=== PATIENT | female | born 2000 | race Caucasian/White ===

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

== ENCOUNTER 2018-01-13 21:37 | Emergency (ER) | payer OTHER ==
[2018-01-13 22:25] LABS: Bilirubin Negative (Negative); Blood, Urine Small (Negative); Clarity Clear (Clear); Glucose, Urine (Dipstick) Negative (Negative); Leukocyte Negative (Negative); Nitrite Negative (Negative); Protein, Urine (Dipstick) Negative (Neg-Trace); Urobilinogen 0.2 mg/dL (0.2-1.0)
[2018-01-13 22:32] LABS: Bacteria/HPF None Seen HPF (None Seen); Specific Gravity, Urine 1.022 (1.002-1.036); Squamous Epithelial 0-3 HPF (0-3); WBC/HPF 0-3 HPF (0-3)
[2018-01-13 22:33] LABS: Pregnancy Test - Urine (BHCG) Negative (Negative); Pregu Control Background? CLEAR/WHITE (CLR/WHITE); Pregu Control Bar Appear? YES (CONTROL BAR); Specific Gravity 1.022 (1.002-1.036)
--- NOTE | 2018-01-13 23:09 | CT ---
CT ABDOMEN AND PELVIS WITHOUT IV CONTRAST: INDICATIONS: Right flank pain. Nausea and vomiting. COMPARISON: None. FINDINGS: The lung bases are clear. Unopacified liver, spleen, pancreas, adrenal glands, and kidneys are unremarkable. No hydronephrosis is evident. No renal or ureteral calculus is evident. No free fluid is evident. The appendix is not definitely visualized. No free fluid is evident. The bladder is decompressed. No acute osseous abnormality is evident. IMPRESSION: 1. No renal or ureteral calculus. 2. Nonvisualization of the appendix. 3. No free fluid demonstrated. POS: [facility]
[2018-01-13] MEDS ORDERED: Acetaminophen 500 MG TAB ONE (23:16)
[2018-01-13] MEDS ORDERED: Ibuprofen 800 MG TAB ONE (23:16)
[2018-01-13] MEDS ORDERED: traMADol HCl 50 MG TAB ONE (23:16)
== END 2018-01-13 23:19 | disposition home or self-care (01) ==
LOC: MADERS 21:37
DX: M54.5 Low back pain (principal); E06.3 Autoimmune thyroiditis; F32.9 Major depressive disorder, single episode, unspecified; Z79.899 Other long term (current) drug therapy
CPT/HCPCS: 74176; 81003; 81015; 81025

== ENCOUNTER 2018-10-21 17:57 | Emergency (ER) | payer OTHER | END 2018-10-21 18:36 | disposition home or self-care (01) | LOC: MADERS 17:57 | DX: O99.89 Other specified diseases and conditions complicating pregnancy, childbirth and the puerperium (principal); R10.2 Pelvic and perineal pain; O99.342 Other mental disorders complicating pregnancy, second trimester; F32.9 Major depressive disorder, single episode, unspecified; Z3A.27 27 weeks gestation of pregnancy | CPT/HCPCS: 99283 ==

== ENCOUNTER 2018-10-31 13:23 | Outpatient (CLI) | payer OTHER ==
[2018-10-31 15:01] LABS: #Eosinphils 0.1 thou/uL (0.0-0.7); #Lymphocytes 1.3 thou/uL (1.20-3.40); #Monocytes 0.5 thou/uL (0.11-0.59); #Neutrophils 4.4 thou/uL (1.40-6.50); %Basophils 0.8 % (0.0-1.0); %Eosinophils 0.9 % (0.0-10.0); %Lymphocytes 20.2 % (28.0-48.0); %Monocytes 7.2 % (0.0-4.0); Hemoglobin 9.6 g/dL (12.0-16.0); Mean Corpuscular HGB CONC 32.7 g/dL (32.0-36.0); Mean Corpuscular Hemoglobin 31.2 pg (25.0-35.0); Mean Corpuscular Volume 95.5 fL (78.0-98.0); Mean Platelet Volume 7.2 fL (7.4-10.4); Platelet Count 262 thou/uL (130-400); RBC Distribution Width 11.2 % (11.5-14.5); Red Blood Cell (RBC) Count 3.08 mill/uL (4.00-5.20); White Blood Cell (WBC) Count 6.2 thou/uL (4.8-10.8)
[2018-10-31 15:35] LABS: Thyroid Stimulating Hormone 0.9644 uIU/mL (0.35-4.94)
[2018-10-31 22:04] LABS: Syphilis Antibody Nonreactive (Nonreactive); Syphilis Antibody Index 0.03 S/CO (<1.00 Non-Reactive)
[2018-10-31 22:33] LABS: HIV (1/2) Antibody/Antigen Non-Reactive (NonReactive); HIV 1/2 INDEX 0.06 S/CO (<1.00)
== END 2018-10-31 13:24 ==
LOC: MADLABBHPM 13:23
PROVIDERS: ATTEND Family Medicine
DX: Z34.83 Encounter for supervision of other normal pregnancy, third trimester (principal)
CPT/HCPCS: 36415; 82950; 84443; 85025; 86780; 87389

== ENCOUNTER 2018-11-06 08:06 | Outpatient (CLI) | payer OTHER | END 2018-11-06 08:07 | disposition home or self-care (01) | LOC: MADLABBHPM 08:06 | PROVIDERS: ATTEND Family Medicine | DX: Z34.83 Encounter for supervision of other normal pregnancy, third trimester (principal) | CPT/HCPCS: 36415; 82951; 82952 ==

== ENCOUNTER 2018-11-07 19:02 | Emergency (ER) | payer OTHER ==
[~2018-11-07 19:02] MED LIST: Iopamidol 370 76% 125 ML VIAL FS ONE; Sodium Chloride 0.9% 100 ML BAG ONE
[2018-11-07 20:29] LABS: #Basophils 0.1 thou/uL (0.0-0.2); #Eosinphils 0.1 thou/uL (0.0-0.7); #Monocytes 0.6 thou/uL (0.11-0.59); #Neutrophils 5.7 thou/uL (1.40-6.50); %Basophils 1.8 % (0.0-1.0); %Eosinophils 1.1 % (0.0-10.0); %Lymphocytes 13.4 % (28.0-48.0); %Monocytes 7.8 % (0.0-4.0); %Neutrophils 75.8 % (31.0-61.0); Hemoglobin 9.5 g/dL (12.0-16.0); Mean Corpuscular HGB CONC 33.5 g/dL (32.0-36.0); Mean Corpuscular Hemoglobin 31.4 pg (25.0-35.0); Mean Corpuscular Volume 93.8 fL (78.0-98.0); Mean Platelet Volume 7.3 fL (7.4-10.4); Platelet Count 253 thou/uL (130-400); RBC Distribution Width 11.1 % (11.5-14.5); Red Blood Cell (RBC) Count 3.04 mill/uL (4.00-5.20); White Blood Cell (WBC) Count 7.5 thou/uL (4.8-10.8)
[2018-11-07 20:40] LABS: ALT (SGPT) 34 U/L (8-55); AST (SGOT) 77 U/L (5-34); Albumin 3.7 g/dL (3.5-5.0); Alkaline Phosphatase 91 U/L (40-150); Anion Gap 15 mmol/L (10-20); BUN (Urea Nitrogen) 5 mg/dL (7.0-18.7); Bilirubin, Total 0.6 mg/dL (0.2-1.2); Calc. Creatinine Clearance 0 mL/min (70-130); Calcium 8.9 mg/dL (7.8-10.44); Carbon Dioxide 20 mmol/L (22-29); Chloride 108 mmol/L (98-107); Estimated GFR-MDRD Greater than 90; Globulin 2.9 g/dL (2.4-3.5); Glucose 98 mg/dL (70-105); Potassium 3.2 mmol/L (3.5-5.1); Protein, Total 6.6 g/dL (6.0-8.3); Sodium 140 mmol/L (136-145)
--- NOTE | 2018-11-07 22:03 | CT ---
CT ANGIOGRAM CHEST WITH CONTRAST: 11/07/18 HISTORY: Chest pain. Dyspnea. COMPARISON: Radiograph of chest from 2017. FINDINGS: CT angiogram chest performed after the intravenous administration of contrast. 3D rendering is provid ed. Exam is limited due to the delayed phase of the contrast. No proximal segmental pulmonary arteria l filling defect. Pulmonary trunk size is normal. The aortic size is normal. The thyroid is unremarka ble. No mediastinal adenopathy. No pericardial effusion. Limited evaluation of the upper abdomen is u nremarkable. There is motion artifact throughout the examination. Multiple end plate Schmorl's nodes. Lungs are cl ear. No pneumothorax. No effusion. No focal air space consolidation. No acute displaced rib fracture. IMPRESSION: 1. No proximal segmental pulmonary arterial filling defect. 2. No acute inflammatory process within the chest. POS: [facility]
[2018-11-07] MEDS ORDERED: Potassium Chloride 20 MEQ TAB ONE (22:42)
== END 2018-11-07 22:54 | disposition home or self-care (01) ==
LOC: MADERS 19:02
DX: O99.89 Other specified diseases and conditions complicating pregnancy, childbirth and the puerperium (principal); R06.02 Shortness of breath; R07.89 Other chest pain; O99.342 Other mental disorders complicating pregnancy, second trimester; F32.9 Major depressive disorder, single episode, unspecified; F41.9 Anxiety disorder, unspecified; Z3A.21 21 weeks gestation of pregnancy
CPT/HCPCS: 71275; 80053; 84484; 85025; 85379; 93005; J7050; Q9967

== ENCOUNTER 2018-11-26 12:09 | Emergency (ER) | payer OTHER ==
[2018-11-26] MEDS ORDERED: Sodium Chloride 0.9% 1,000 ML ONE (12:34)
[2018-11-26] MEDS ORDERED: Ondansetron PF 4 MG/2 ML Vial ONE (12:34)
[2018-11-26 12:37] LABS: #Lymphocytes 0.9 thou/uL (1.20-3.40); #Monocytes 0.4 thou/uL (0.11-0.59); #Neutrophils 7.6 thou/uL (1.40-6.50); %Basophils 0.3 % (0.0-1.0); %Eosinophils 0.1 % (0.0-10.0); %Monocytes 4.4 % (0.0-4.0); %Neutrophils 85.2 % (31.0-61.0); Hemoglobin 9.4 g/dL (12.0-16.0); Mean Corpuscular HGB CONC 33.3 g/dL (32.0-36.0); Mean Corpuscular Hemoglobin 30.5 pg (25.0-35.0); Mean Corpuscular Volume 91.7 fL (78.0-98.0); Mean Platelet Volume 6.8 fL (7.4-10.4); Platelet Count 253 thou/uL (130-400); RBC Distribution Width 11.5 % (11.5-14.5); Red Blood Cell (RBC) Count 3.07 mill/uL (4.00-5.20); White Blood Cell (WBC) Count 8.9 thou/uL (4.8-10.8)
[2018-11-26 13:00] LABS: ALT (SGPT) 15 U/L (8-55); AST (SGOT) 15 U/L (5-34); Albumin 3.8 g/dL (3.5-5.0); Alkaline Phosphatase 99 U/L (40-150); Anion Gap 16 mmol/L (10-20); BUN (Urea Nitrogen) 4 mg/dL (7.0-18.7); Bilirubin, Total 0.3 mg/dL (0.2-1.2); Calc. Creatinine Clearance 0 mL/min (70-130); Calcium 9.2 mg/dL (7.8-10.44); Carbon Dioxide 21 mmol/L (22-29); Chloride 107 mmol/L (98-107); Estimated GFR-MDRD Greater than 90; Glucose 86 mg/dL (70-105); Lipase 8 U/L (8-78); Potassium 3.9 mmol/L (3.5-5.1); Protein, Total 6.8 g/dL (6.0-8.3); Sodium 140 mmol/L (136-145)
[2018-11-26 13:18] LABS: Bilirubin Negative (Negative); Blood, Urine Trace (Negative); Glucose, Urine (Dipstick) Negative (Negative); Leukocyte Trace (Negative); Nitrite Negative (Negative); Protein, Urine (Dipstick) 30 mg/dL (Neg-Trace); Specific Gravity, Urine 1.015 (1.005-1.030); Urobilinogen 0.2 mg/dL (0.2-1.0)
[2018-11-26 13:25] LABS: Bacteria/HPF 2+ HPF (None Seen); Clarity Hazy (Clear); RBC/HPF 0-3 HPF (0-3); WBC/HPF 0-3 HPF (0-3)
== END 2018-11-26 13:41 | disposition home or self-care (01) ==
LOC: MADERS 12:09
DX: O99.013 Anemia complicating pregnancy, third trimester (principal); O98.513 Other viral diseases complicating pregnancy, third trimester; O99.343 Other mental disorders complicating pregnancy, third trimester; F32.9 Major depressive disorder, single episode, unspecified; Z3A.31 31 weeks gestation of pregnancy
CPT/HCPCS: 80053; 81003; 81015; 83690; 85025; 87804; 96361; 96374; J2405; J7050

== ENCOUNTER 2020-10-26 17:46 | Emergency (ER) | payer OTHER | END 2020-10-26 18:23 | disposition home or self-care (01) | LOC: MADERS 17:46 | DX: H66.92 Otitis media, unspecified, left ear (principal); I10 Essential (primary) hypertension; E06.3 Autoimmune thyroiditis; Z79.899 Other long term (current) drug therapy | CPT/HCPCS: 99283 ==

== ENCOUNTER 2020-10-31 18:18 | Emergency (ER) | payer OTHER | END 2020-10-31 19:04 | disposition home or self-care (01) | LOC: MADERS 18:18 | DX: H66.92 Otitis media, unspecified, left ear (principal); H60.92 Unspecified otitis externa, left ear; I10 Essential (primary) hypertension; E06.3 Autoimmune thyroiditis; Z79.899 Other long term (current) drug therapy | CPT/HCPCS: 99283 ==

== ENCOUNTER 2021-02-22 12:16 | Emergency (ER) | payer OTHER ==
[2021-02-22] MEDS ORDERED: NEOMYCIN-POLYMYXIN-HC EAR SUSP 200 DROP/10 ML BOT ONE (13:07)
[2021-02-22] MEDS ORDERED: Calcium Carbonate 500 MG ChewTAB ONE (13:07)
== END 2021-02-22 13:30 | disposition home or self-care (01) ==
LOC: MADERS 12:16
DX: H60.92 Unspecified otitis externa, left ear (principal); S81.819A Laceration without foreign body, unspecified lower leg, initial encounter; S93.431A Sprain of tibiofibular ligament of right ankle, initial encounter; S80.10XA Contusion of unspecified lower leg, initial encounter; E06.3 Autoimmune thyroiditis; I10 Essential (primary) hypertension; Z79.899 Other long term (current) drug therapy; X50.9XXA Other and unspecified overexertion or strenuous movements or postures, initial encounter

== ENCOUNTER 2021-03-26 10:49 | Emergency (ER) | payer OTHER, SELFPAY ==
[~2021-03-26 10:49] MED LIST changes: +Iopamidol 370 76% 100 ML VIAL ONE; -Iopamidol 370 76% 125 ML VIAL FS ONE; -Sodium Chloride 0.9% 100 ML BAG ONE
[2021-03-26 11:26] LABS: Hemoglobin 13.5 g/dL (12.0-16.0); Mean Corpuscular HGB CONC 32.5 g/dL (32.0-36.0); Mean Corpuscular Hemoglobin 30.5 pg (27.0-31.0); Mean Platelet Volume 8.7 fL (7.4-10.4); Platelet Count 293 thou/uL (130-400); RBC Distribution Width 11.9 % (11.5-14.5); Red Blood Cell (RBC) Count 4.42 mill/uL (4.20-5.40); White Blood Cell (WBC) Count 3.2 thou/uL (4.8-10.8)
[2021-03-26 11:35] LABS: ALT (SGPT) 408 U/L (8-55); AST (SGOT) 714 U/L (5-34); Albumin 4.4 g/dL (3.5-5.0); Alkaline Phosphatase 122 U/L (40-110); Anion Gap 16 mmol/L (10-20); BUN (Urea Nitrogen) 11 mg/dL (7.0-18.7); Bilirubin, Total 0.3 mg/dL (0.2-1.2); CK (CPK) 101 U/L (29-168); Calc. Creatinine Clearance 0 mL/min (70-130); Calcium 9.2 mg/dL (7.8-10.44); Carbon Dioxide 19 mmol/L (22-29); Chloride 107 mmol/L (98-107); Globulin 2.9 g/dL (2.4-3.5); Glucose 84 mg/dL (70-105); Potassium 4.3 mmol/L (3.5-5.1); Protein, Total 7.3 g/dL (6.0-8.3); Sodium 138 mmol/L (136-145)
[2021-03-26 11:42] LABS: CKMB 0.6 ng/mL (0-6.6)
[2021-03-26 11:54] LABS: Band 4 % (5-11); Eosinophils 3 % (0-10); Lymphocytes 51 % (21-51); MDiff Complete? YES; Monocytes 8 % (0-10); Neutrophil 31 % (42-75); Platelet Morphology Comment Appears Adequate; RBC Morphology Normal; Reactive Lymphocytes 1 % (0-10)
[2021-03-26 12:11] LABS: BHCG - Serum Negative (NEGATIVE); Pregs Control Background? CLEAR/WHITE (CLR/WHITE); Pregs Control Bar Appear? YES (CONTROL BAR)
[2021-03-26 13:56] LABS: Acetaminophen Less than 6.0 mcg/mL (10.0-30.0); Alcohol Less than 10 mg/dL (Less than 10); Salicylate Less than 8.0 mg/dL (15.0-30.0)
== END 2021-03-26 13:56 | disposition home or self-care (01) ==
LOC: MADERS 10:49
DX: R07.82 Intercostal pain (principal); R74.01 Elevation of levels of liver transaminase levels; I10 Essential (primary) hypertension; Z79.899 Other long term (current) drug therapy
CPT/HCPCS: 71045; 74177; 80053; 80307; 82550; 82553; 83690; 84484; 84703; 85025; 93005; 94760; Q9967

== ENCOUNTER 2021-06-16 22:30 | Emergency (ER) | payer OTHER, SELFPAY | END 2021-06-17 00:24 | disposition home or self-care (01) | LOC: MADERS 22:30 | DX: S93.402A Sprain of unspecified ligament of left ankle, initial encounter (principal); I10 Essential (primary) hypertension; Z79.899 Other long term (current) drug therapy; X50.9XXA Other and unspecified overexertion or strenuous movements or postures, initial encounter; Y93.01 Activity, walking, marching and hiking; Y92.89 Other specified places as the place of occurrence of the external cause ==

== ENCOUNTER 2022-04-03 13:41 | Emergency (ER) | payer OTHER ==
[2022-04-03 14:34] LABS: #Basophils 0.1 thou/uL (0.0-0.2); #Eosinphils 0.2 thou/uL (0.0-0.7); #Lymphocytes 1.8 thou/uL (1.20-3.40); #Monocytes 0.4 thou/uL (0.11-0.59); #Neutrophils 4.1 thou/uL (1.40-6.50); %Basophils 1.1 % (0.0-1.0); %Eosinophils 3.4 % (0.0-10.0); %Lymphocytes 26.8 % (21.0-51.0); %Monocytes 6.1 % (0.0-10.0); %Neutrophils 62.6 % (42.0-75.0); Hemoglobin 13.1 g/dL (12.0-16.0); Mean Corpuscular HGB CONC 32.8 g/dL (32.0-36.0); Mean Corpuscular Hemoglobin 29.6 pg (27.0-31.0); Mean Corpuscular Volume 90.3 fL (78.0-98.0); Mean Platelet Volume 8.7 fL (7.4-10.4); Platelet Count 280 thou/uL (130-400); RBC Distribution Width 11.5 % (11.5-14.5); White Blood Cell (WBC) Count 6.6 thou/uL (4.8-10.8)
[2022-04-03 14:44] LABS: BHCG - Serum Negative (NEGATIVE); Pregs Control Background? CLEAR/WHITE (CLR/WHITE); Pregs Control Bar Appear? YES (CONTROL BAR)
[2022-04-03] MEDS ORDERED: Aspirin Chewable 81 MG TAB ONE (14:47)
[2022-04-03] MEDS ORDERED: Nitroglycerin 0.4 MG TAB 1 EACH ONE (14:47)
[2022-04-03 14:51] LABS: ALT (SGPT) 74 U/L (8-55); AST (SGOT) 59 U/L (5-34); Albumin 4.4 g/dL (3.5-5.0); Alkaline Phosphatase 73 U/L (40-110); Anion Gap 14 mmol/L (10-20); BUN (Urea Nitrogen) 9 mg/dL (7.0-18.7); Bilirubin, Total 0.5 mg/dL (0.2-1.2); Calc. Creatinine Clearance 0 mL/min (70-130); Calcium 9.4 mg/dL (7.8-10.44); Carbon Dioxide 23 mmol/L (22-29); Chloride 105 mmol/L (98-107); Estimated GFR 125; Globulin 2.9 g/dL (2.4-3.5); Glucose 77 mg/dL (70-105); Potassium 3.9 mmol/L (3.5-5.1); Protein, Total 7.3 g/dL (6.0-8.3); Sodium 138 mmol/L (136-145)
[2022-04-03] MEDS ORDERED: Mag-Al Plus 1200 MG/1200 MG/120 MG/30 ML UDCUP ONE (15:04)
[2022-04-03] MEDS ORDERED: Lidocaine Viscous Sol 2% 15 ml UD Cup ONE (15:04)
[2022-04-03] MEDS ORDERED: Lactated Ringer's 1,000 ML ONE (17:04)
[2022-04-03] MEDS ORDERED: Morphine 4 MG/ML VIAL ONE (17:04)
== END 2022-04-03 17:28 | disposition short-term general hospital (02) ==
LOC: MADERS 13:41
DX: K80.20 Calculus of gallbladder without cholecystitis without obstruction (principal); R07.2 Precordial pain; R74.01 Elevation of levels of liver transaminase levels; I10 Essential (primary) hypertension; E06.3 Autoimmune thyroiditis
CPT/HCPCS: 36415; 71046; 80053; 83690; 84484; 84703; 85025; 93005; 94760; 96374; J2270; J7120

== ENCOUNTER 2023-07-10 09:11 | Emergency (ER) | payer OTHER ==
[2023-07-10 09:44] LABS: Bilirubin Negative (Negative); Blood, Urine Negative (Negative); Clarity Hazy (Clear); Glucose, Urine (Dipstick) Negative (Negative); Ketone, Urine Negative (Negative); Leukocyte Trace (Negative); Nitrite Negative (Negative); Protein, Urine (Dipstick) 100 mg/dL (Neg-Trace); Specific Gravity, Urine 1.025 (1.005-1.030); Urobilinogen 0.2 mg/dL (Less than 2)
[2023-07-10 09:45] LABS: Bacteria/HPF 1+ HPF (None Seen); CAUTI Indications for Culture Spinal Cord Injury; RBC/HPF 0-3 HPF (0-3)
[2023-07-10 09:46] LABS: Pregnancy Test - Urine (BHCG) Negative (Negative); Pregu Control Background? CLEAR/WHITE (CLR/WHITE); Pregu Control Bar Appear? YES (CONTROL BAR); Specific Gravity 1.025 (1.002-1.036)
[2023-07-10 09:47] LABS: Urine Culture Reflex Yes Yes
[2023-07-10 09:55] LABS: #Basophils 0.1 thou/uL (0.0-0.2); #Eosinphils 0.4 thou/uL (0.0-0.7); #Lymphocytes 0.7 thou/uL (1.20-3.40); #Monocytes 0.4 thou/uL (0.11-0.59); %Basophils 0.6 % (0.0-1.0); %Eosinophils 3.8 % (0.0-10.0); %Lymphocytes 6.3 % (21.0-51.0); %Monocytes 3.5 % (0.0-10.0); %Neutrophils 85.8 % (42.0-75.0); Hemoglobin 14.1 g/dL (12.0-16.0); Mean Corpuscular HGB CONC 33.6 g/dL (32.0-36.0); Mean Corpuscular Hemoglobin 31.8 pg (27.0-31.0); Mean Corpuscular Volume 94.7 fl (78.0-98.0); Mean Platelet Volume 7.4 fL (7.4-10.4); Platelet Count 300 10x3/uL (130-400); RBC Distribution Width 11.7 % (11.5-14.5); Red Blood Cell (RBC) Count 4.44 mill/uL (4.20-5.40); White Blood Cell (WBC) Count 11.6 10x3/uL (4.8-10.8)
[2023-07-10] MEDS ORDERED: Ondansetron PF 4 MG/2 ML Vial ONE (10:04)
[2023-07-10] MEDS ORDERED: Sodium Chloride 0.9% 1,000 ML ONE (10:04)
[2023-07-10 10:11] LABS: ALT (SGPT) 34 U/L (8-55); AST (SGOT) 24 U/L (5-34); Albumin 4.8 g/dL (3.5-5.0); Alkaline Phosphatase 80 U/L (40-110); Anion Gap 18 mmol/L (10-20); BUN (Urea Nitrogen) 13 mg/dL (7.0-18.7); Bilirubin, Total 0.6 mg/dL (0.2-1.2); Calc. Creatinine Clearance 0 mL/min (70-130); Calcium 9.4 mg/dL (7.8-10.44); Carbon Dioxide 20 mmol/L (22-29); Chloride 105 mmol/L (98-107); Estimated GFR 104; Glucose 91 mg/dL (70-105); Lipase 9 U/L (8-78); Protein, Total 7.8 g/dL (6.0-8.3); Sodium 139 mmol/L (136-145)
== END 2023-07-10 11:44 | disposition home or self-care (01) ==
LOC: MADERS 09:11
DX: A08.4 Viral intestinal infection, unspecified (principal); I10 Essential (primary) hypertension; E06.3 Autoimmune thyroiditis; Z79.899 Other long term (current) drug therapy
CPT/HCPCS: 80053; 81001; 81025; 83690; 85025; 87086; 96374; J2405; J7050

== ENCOUNTER 2023-10-28 07:57 | Emergency (ER) | payer OTHER ==
[2023-10-28] MEDS ORDERED: Lidocaine 2% Viscous 100 ML BOTTLE ONE (08:38)
== END 2023-10-28 09:10 | disposition home or self-care (01) ==
LOC: MADERS 07:57
DX: H60.502 Unspecified acute noninfective otitis externa, left ear (principal); H73.92 Unspecified disorder of tympanic membrane, left ear; I10 Essential (primary) hypertension
CPT/HCPCS: 99282

== ENCOUNTER 2023-11-02 11:55 | Emergency (ER) | payer OTHER ==
[2023-11-02] MEDS ORDERED: Lidocaine 2% Viscous 100 ML BOTTLE ONE (12:20)
[2023-11-02] MEDS ORDERED: Ondansetron ODT 4 MG TAB ONE ×2 (12:21→15:07)
[2023-11-02] MEDS ORDERED: Mag-Al Plus 1200/1200/120 MG (30 mL) UDCUP ONE (12:21)
[2023-11-02 12:39] LABS: BHCG - Serum Negative (NEGATIVE); Pregs Control Background? CLEAR/WHITE (CLR/WHITE); Pregs Control Bar Appear? YES (CONTROL BAR)
[2023-11-02 12:42] LABS: #Basophils 0.1 thou/uL (0.0-0.2); #Eosinphils 0.2 thou/uL (0.0-0.7); #Lymphocytes 1.6 thou/uL (1.20-3.40); #Monocytes 0.1 thou/uL (0.11-0.59); #Neutrophils 2.4 thou/uL (1.40-6.50); %Basophils 1.2 % (0.0-1.0); %Eosinophils 3.8 % (0.0-10.0); %Lymphocytes 35.7 % (21.0-51.0); %Monocytes 3.3 % (0.0-10.0); %Neutrophils 56.1 % (42.0-75.0); White Blood Cell (WBC) Count 4.3 10x3/uL (4.8-10.8)
[2023-11-02 12:44] LABS: Mean Corpuscular HGB CONC 33.2 g/dL (32.0-36.0); Mean Corpuscular Hemoglobin 30.8 pg (27.0-31.0); Mean Corpuscular Volume 92.8 fl (78.0-98.0); Mean Platelet Volume 8.5 fL (7.4-10.4); Platelet Count 263 10x3/uL (130-400); RBC Distribution Width 11.6 % (11.5-14.5)
[2023-11-02 12:46] LABS: ALT (SGPT) 139 U/L (8-55); AST (SGOT) 158 U/L (5-34); Albumin 4.6 g/dL (3.5-5.0); Alkaline Phosphatase 61 U/L (40-110); Anion Gap 17 mmol/L (10-20); BUN (Urea Nitrogen) 11 mg/dL (7.0-18.7); Bilirubin, Total 0.5 mg/dL (0.2-1.2); Calc. Creatinine Clearance 0 mL/min (70-130); Calcium 9.6 mg/dL (7.8-10.44); Carbon Dioxide 21 mmol/L (22-29); Chloride 104 mmol/L (98-107); Estimated GFR 117; Globulin 3.2 g/dL (2.4-3.5); Glucose 87 mg/dL (70-105); Lipase 13 U/L (8-78); Magnesium 2.1 mg/dL (1.6-2.6); Potassium 4.1 mmol/L (3.5-5.1); Protein, Total 7.8 g/dL (6.0-8.3); Sodium 138 mmol/L (136-145); Troponin I 0.012 ng/mL (< 0.028)
[2023-11-02] MEDS ORDERED: ALPRAZolam 0.5 MG TAB ONE (13:08)
[2023-11-02] MEDS ORDERED: Ketorolac Tromethamine 30 MG (1 mL) VIAL ONE (14:17)
[2023-11-02 17:03] LABS: Troponin I Less than 0.010 ng/mL (< 0.028)
== END 2023-11-02 17:33 | disposition home or self-care (01) ==
LOC: MADERS 11:55
DX: M94.0 Chondrocostal junction syndrome [Tietze] (principal); F41.9 Anxiety disorder, unspecified; R74.01 Elevation of levels of liver transaminase levels; I10 Essential (primary) hypertension; E06.3 Autoimmune thyroiditis; Z79.899 Other long term (current) drug therapy
CPT/HCPCS: 36415; 71045; 80053; 83690; 83735; 83880; 84484; 84703; 85025; 93005; 96372; J1885; Q0162

== ENCOUNTER 2023-11-06 09:59 | Emergency (ER) | payer OTHER ==
[2023-11-06] MEDS ORDERED: Dicyclomine 20 MG/2 ML VIAL ONE (10:56)
[2023-11-06] MEDS ORDERED: diphenhydrAMINE 50 MG/ML VIAL ONE (10:56)
[2023-11-06] MEDS ORDERED: Prochlorperazine 10 MG/2 ML VIAL ONE ×2 (10:57→14:09)
[2023-11-06] MEDS ORDERED: Lactated Ringer's 1,000 ML ONE ×3 (10:57→12:10)
[2023-11-06 11:07] LABS: #Basophils 0.1 thou/uL (0.0-0.2); #Eosinphils 0.1 thou/uL (0.0-0.7); #Lymphocytes 0.3 thou/uL (1.20-3.40); #Monocytes 0.3 thou/uL (0.11-0.59); #Neutrophils 9.1 thou/uL (1.40-6.50); %Basophils 0.5 % (0.0-1.0); %Eosinophils 0.7 % (0.0-10.0); %Lymphocytes 3.3 % (21.0-51.0); %Monocytes 3.1 % (0.0-10.0); %Neutrophils 92.3 % (42.0-75.0); Hematocrit 43.8 % (36.0-47.0); Hemoglobin 14.4 g/dL (12.0-16.0); Mean Platelet Volume 8.7 fL (7.4-10.4); Platelet Count 273 10x3/uL (130-400); RBC Distribution Width 12.1 % (11.5-14.5); Red Blood Cell (RBC) Count 4.66 mill/uL (4.20-5.40); White Blood Cell (WBC) Count 9.9 10x3/uL (4.8-10.8)
[2023-11-06 11:22] LABS: ALT (SGPT) 139 U/L (8-55); AST (SGOT) 97 U/L (5-34); Albumin 4.9 g/dL (3.5-5.0); Alkaline Phosphatase 64 U/L (40-110); Anion Gap 20 mmol/L (10-20); BUN (Urea Nitrogen) 13 mg/dL (7.0-18.7); Bilirubin, Total 0.8 mg/dL (0.2-1.2); Calc. Creatinine Clearance 0 mL/min (70-130); Calcium 9.7 mg/dL (7.8-10.44); Carbon Dioxide 19 mmol/L (22-29); Chloride 104 mmol/L (98-107); Estimated GFR 110; Globulin 3.4 g/dL (2.4-3.5); Glucose 112 mg/dL (70-105); Lipase 13 U/L (8-78); Protein, Total 8.3 g/dL (6.0-8.3); Sodium 139 mmol/L (136-145)
[2023-11-06 11:28] LABS: Bilirubin Negative (Negative); Blood, Urine Trace (Negative); Clarity Clear (Clear); Glucose, Urine (Dipstick) Negative (Negative); Ketone, Urine 40 mg/dL (Negative); Leukocyte Negative (Negative); Nitrite Negative (Negative); Protein, Urine (Dipstick) 100 mg/dL (Neg-Trace); Specific Gravity, Urine 1.025 (1.005-1.030); Urobilinogen 0.2 mg/dL (Less than 2); pH, Urine 7.5 (5.0-9.0)
[2023-11-06 11:29] LABS: Pregnancy Test - Urine (BHCG) Negative (Negative)
[2023-11-06 11:30] LABS: Pregu Control Background? CLEAR/WHITE (CLR/WHITE); Pregu Control Bar Appear? YES (CONTROL BAR); RBC/HPF 0-3 HPF (0-3); Specific Gravity 1.025 (1.002-1.036)
[2023-11-06 11:31] LABS: Bacteria/HPF Rare-Few HPF (None Seen); CAUTI Indications for Culture Fever or rigors; WBC/HPF 0-3 HPF (0-3)
[2023-11-06 11:32] LABS: Urine Culture Reflex No No
[2023-11-06 11:35] LABS: Critical Call Chem-Lactate NUR.MWC@1135
[2023-11-06] MEDS ORDERED: Ketorolac Tromethamine 30 MG (1 mL) VIAL ONE (11:45)
[2023-11-06 13:59] LABS: Lactic Acid 3.1 mmol/L (0.5-2.2)
[2023-11-06] MEDS ORDERED: Promethazine HCl 25 MG/ML VIAL ONE (14:33)
== END 2023-11-06 15:10 | disposition home or self-care (01) ==
LOC: MADERS 09:59
DX: R11.2 Nausea with vomiting, unspecified (principal); R74.02 Elevation of levels of lactic acid dehydrogenase [LDH]; E86.0 Dehydration; R80.9 Proteinuria, unspecified; E87.20 Acidosis, unspecified; I10 Essential (primary) hypertension; E06.3 Autoimmune thyroiditis
CPT/HCPCS: 80053; 81001; 81025; 82550; 83605; 83690; 85025; 87040; 87635; 87804; 93005; 94760; 96361; 96365; 96372; 96375; 96376; J0780; J1200; J1885; J2550; J7120

== ENCOUNTER 2023-12-29 18:56 | Emergency (ER) | payer OTHER ==
[2023-12-29 19:43] LABS: Bilirubin Small (Negative); Blood, Urine Negative (Negative); Glucose, Urine (Dipstick) Negative (Negative); Ketone, Urine > or equal to 80 mg/dL (Negative); Leukocyte Small (Negative); Nitrite Negative (Negative); Protein, Urine (Dipstick) Negative (Neg-Trace); Urobilinogen 0.2 mg/dL (Less than 2)
[2023-12-29 19:44] LABS: Pregnancy Test - Urine (BHCG) Negative (Negative); Pregu Control Background? CLEAR/WHITE (CLR/WHITE); Pregu Control Bar Appear? YES (CONTROL BAR)
[2023-12-29 19:45] LABS: Bacteria/HPF 1+ HPF (None Seen); CAUTI Indications for Culture Pelvic or flank pain; Clarity Hazy (Clear); RBC/HPF 0-3 HPF (0-3)
[2023-12-29 19:46] LABS: Mucous/LPF 2+ LPF (<2+)
[2023-12-29 19:47] LABS: Urine Culture Reflex No No
[2023-12-29] MEDS ORDERED: Sodium Chloride 0.9% 1,000 ML ONE (19:55)
[2023-12-29] MEDS ORDERED: Ondansetron PF 4 MG/2 ML Vial ONE (19:55)
[2023-12-29 20:05] LABS: #Basophils 0.1 thou/uL (0.0-0.2); #Eosinphils 0.2 thou/uL (0.0-0.7); #Lymphocytes 2.3 thou/uL (1.20-3.40); #Monocytes 0.4 thou/uL (0.11-0.59); #Neutrophils 3.9 thou/uL (1.40-6.50); %Basophils 1.6 % (0.0-1.0); %Eosinophils 3.4 % (0.0-10.0); %Lymphocytes 33.1 % (21.0-51.0); %Monocytes 5.8 % (0.0-10.0); %Neutrophils 56.2 % (42.0-75.0); Hematocrit 44.3 % (36.0-47.0); Hemoglobin 13.6 g/dL (12.0-16.0); Mean Corpuscular HGB CONC 30.6 g/dL (32.0-36.0); Mean Corpuscular Hemoglobin 29.1 pg (27.0-31.0); Mean Corpuscular Volume 95.2 fl (78.0-98.0); Mean Platelet Volume 8.3 fL (7.4-10.4); Platelet Count 272 10x3/uL (130-400); RBC Distribution Width 11.2 % (11.5-14.5); Red Blood Cell (RBC) Count 4.66 mill/uL (4.20-5.40)
[2023-12-29 20:27] LABS: ALT (SGPT) 157 U/L (8-55); AST (SGOT) 161 U/L (5-34); Albumin 5.2 g/dL (3.5-5.0); Alkaline Phosphatase 55 U/L (40-110); Anion Gap 22 mmol/L (10-20); BUN (Urea Nitrogen) 10 mg/dL (7.0-18.7); Bilirubin, Total 0.9 mg/dL (0.2-1.2); Calc. Creatinine Clearance 0 mL/min (70-130); Calcium 10.2 mg/dL (7.8-10.44); Carbon Dioxide 19 mmol/L (22-29); Chloride 102 mmol/L (98-107); Estimated GFR 103; Globulin 3.5 g/dL (2.4-3.5); Glucose 78 mg/dL (70-105); Lipase 27 U/L (8-78); Magnesium 2.1 mg/dL (1.6-2.6); Potassium 3.6 mmol/L (3.5-5.1); Protein, Total 8.7 g/dL (6.0-8.3); Sodium 139 mmol/L (136-145)
== END 2023-12-29 21:11 | disposition home or self-care (01) ==
LOC: MADERS 18:56
DX: R74.01 Elevation of levels of liver transaminase levels (principal); K76.0 Fatty (change of) liver, not elsewhere classified; I10 Essential (primary) hypertension
CPT/HCPCS: 74177; 80053; 81001; 81025; 83690; 83735; 85025; 96374; J2405; J7050; Q9967